=== PATIENT | male | born 1935 | race Caucasian/White ===

== ENCOUNTER 2017-12-07 09:49 | Inpatient (IN) | payer OTHER, MEDICARE ==
[2017-12-07] VITALS (10 sets, daily range): BP systolic 137–178; BP diastolic 82–126; BMI 33.8
[~2017-12-07] VITALS: Ht 190.5 cm; Wt 123.5 kg
[2017-12-07 10:30] LABS: HEMATOCRIT 45.8 % (42.0-54.0); HEMOGLOBIN 15.5 g/dL (13.5-17.5); MCH 31.8 pg (26.0-34.0); MCHC 33.8 g/dL (31.0-37.0); MEAN PLATELET VOLUME 10.5 fL (7.4-10.4); PLATELET COUNT 243 10x3/uL (130-400); RBC 4.87 10x6/uL (4.20-6.10); WBC 20.6 10x3/uL (4.8-10.8)
[2017-12-07 10:42] LABS: ALBUMIN 3.2 g/dL (3.4-5.0); ALKALINE PHOSPHATASE 62 U/L (46-116); ALT (SGPT) 31 U/L (10-68); BILIRUBIN - TOTAL 0.99 mg/dL (0.2-1.3); CALC OSMOLALITY 276 mosm/kg (275-300); CALCIUM 8.6 mg/dL (8.5-10.1); CARBON DIOXIDE 30.2 mmol/L (21.0-32.0); CHLORIDE - SERUM 98 mmol/L (98-107); GLUCOSE 170 mg/dL (74-106); POTASSIUM - SERUM 4.2 mmol/L (3.5-5.1); PROTEIN - SERUM 7.6 g/dL (6.4-8.2); SODIUM 136 mmol/L (136-145); UREA NITROGEN 14 mg/dL (7-18); eGFR NON AFRICAN AMERICAN 76 mL/min (90-120)
[2017-12-07 10:54] LABS: CKMB 0.8 U/L (0.0-3.6); CREATINE KINASE 53 UL (21-232); LYMPHOCYTES 11 % (15-50); MONOCYTES 10 % (2-11); NEUTROPHILS 69 % (40-80); TROPONIN-I < 0.017 ng/mL (0.000-0.060)
[2017-12-07 10:55] LABS: PLATELET ESTIMATE NORMAL; PLATELET MORPHOLOGY GIANT PLTS PRESENT; ROULEAUX OCC
[2017-12-07 10:56] LABS: POLYCHROMASIA 1+
[2017-12-07 17:15] LABS: T4 THYROXIN - FREE 1.14 ng/dL (0.76-1.46); THYROID STIMULATING HORMONE 1.35 uIU/mL (0.36-3.74)
[2017-12-08] VITALS (24 sets, daily range): BP systolic 124–186; BP diastolic 71–143; Ht 190.5 cm; Wt 123.5 kg
[2017-12-08 03:26] LABS: BASOPHILS 0.1 % (0-2); EOSINOPHILS 0.2 % (0-7); HEMATOCRIT 42.6 % (42.0-54.0); HEMOGLOBIN 14.4 g/dL (13.5-17.5); IMMATURE GRANULOCYTES 0.6 % (0-5); LYMPHOCYTES 11.2 % (15-50); MCHC 33.8 g/dL (31.0-37.0); MCV 94.7 fL (80.0-100.0); MEAN PLATELET VOLUME 10.6 fL (7.4-10.4); MONOCYTES 12.1 % (2-11); NEUTROPHILS 75.8 % (40-80); PLATELET COUNT 209 10x3/uL (130-400); RDW 14.1 % (11.5-14.5); WBC 18.6 10x3/uL (4.8-10.8)
[2017-12-08 03:32] LABS: CALC OSMOLALITY 270 mosm/kg (275-300); CALCIUM 7.8 mg/dL (8.5-10.1); CARBON DIOXIDE 31.1 mmol/L (21.0-32.0); CHLORIDE - SERUM 97 mmol/L (98-107); CREATININE - SERUM 0.9 mg/dL (0.6-1.3); GLUCOSE 189 mg/dL (74-106); POTASSIUM - SERUM 3.6 mmol/L (3.5-5.1); SODIUM 133 mmol/L (136-145); UREA NITROGEN 13 mg/dL (7-18); eGFR NON AFRICAN AMERICAN 86 mL/min (90-120)
[2017-12-08 22:09] LABS: APPEARANCE CLEAR (CLEAR); BILIRUBIN NEGATIVE (NEGATIVE); COLOR ORANGE (YELLOW); GLUCOSE 50 mg/dL (NEGATIVE); KETONE SMALL mg/dL (NEGATIVE); NITRITE NEGATIVE (NEGATIVE); PROTEIN TRACE mg/dL (NEGATIVE); UROBILINOGEN NORMAL (NORMAL)
[2017-12-08 22:11] LABS: AMORPHOUS SEDIMENT <1+ /lpf (NONE SEEN); BACTERIA FEW /hpf (NONE SEEN); EPITHELIAL CELLS 0-5 /hpf (0-5)
[2017-12-09] VITALS (11 sets, daily range): BP systolic 104–168; BP diastolic 62–87
[2017-12-09 06:54] LABS: BASOPHILS 0.2 % (0-2); EOSINOPHILS 0.5 % (0-7); HEMOGLOBIN 13.7 g/dL (13.5-17.5); IMMATURE GRANULOCYTES 0.7 % (0-5); LYMPHOCYTES 14.9 % (15-50); MCH 31.1 pg (26.0-34.0); MCHC 33.4 g/dL (31.0-37.0); MEAN PLATELET VOLUME 10.3 fL (7.4-10.4); MONOCYTES 10.8 % (2-11); NEUTROPHILS 72.9 % (40-80); PLATELET COUNT 217 10x3/uL (130-400); RBC 4.41 10x6/uL (4.20-6.10)
[2017-12-09 07:12] LABS: ALBUMIN 2.5 g/dL (3.4-5.0); ALKALINE PHOSPHATASE 58 U/L (46-116); BILIRUBIN - TOTAL 0.73 mg/dL (0.2-1.3); CALC OSMOLALITY 274 mosm/kg (275-300); CALCIUM 8.1 mg/dL (8.5-10.1); CARBON DIOXIDE 29.3 mmol/L (21.0-32.0); CHLORIDE - SERUM 99 mmol/L (98-107); CREATININE - SERUM 0.8 mg/dL (0.6-1.3); GLUCOSE 210 mg/dL (74-106); MAGNESIUM - SERUM 1.7 mg/dL (1.8-2.4); POTASSIUM - SERUM 3.5 mmol/L (3.5-5.1); PROTEIN - SERUM 6.8 g/dL (6.4-8.2); SODIUM 135 mmol/L (136-145); UREA NITROGEN 11 mg/dL (7-18); eGFR NON AFRICAN AMERICAN > 90 mL/min (90-120)
[2017-12-09 07:14] LABS: ALT (SGPT) 17 U/L (10-68)
[2017-12-09] MEDS ORDERED: CYMBALTA30 MG PO (10:32)
[2017-12-09] MEDS ORDERED: FERROUS SULFAT325 MG PO (10:33)
[2017-12-09] MEDS ORDERED: FUROSEMIDE20 MG PO (10:34)
[2017-12-09] MEDS ORDERED: NEURONTIN 400400 MG PO (10:35)
[2017-12-09] MEDS ORDERED: PRINIVIL20 MG PO (10:36)
[2017-12-09] MEDS ORDERED: MELATONIN 3 MG1 TAB PO (10:37)
[2017-12-09] MEDS ORDERED: MIRALAX17 GM PO (10:38)
[2017-12-09] MEDS ORDERED: PROVENTIL HFA6.7 GM INH (10:39)
[2017-12-09] MEDS ORDERED: ZYRTEC10 MG PO (10:40)
[2017-12-09] MEDS ORDERED: ZOCOR40 MG PO (10:40)
[2017-12-09] MEDS ORDERED: METOPROLOL TART25 MG PO (10:42)
[2017-12-09] MEDS ORDERED: ISOSORBIDE MONO60 M1 PO (10:42)
[2017-12-10 04:00] VITALS: BP 134/68
[2017-12-10 07:45] VITALS: BP 133/85
[2017-12-10 11:42] VITALS: BP 148/88
[2017-12-10 15:46] VITALS: BP 169/89
[2017-12-10 21:40] VITALS: BP 152/84
[2017-12-11 06:14] VITALS: BP 162/84
[2017-12-11 06:33] VITALS: BP 177/110
[2017-12-11 07:40] VITALS: BP 165/90
[2017-12-11 10:21] LABS: BASOPHILS 0.3 % (0-2); EOSINOPHILS 1.1 % (0-7); HEMATOCRIT 39.5 % (42.0-54.0); HEMOGLOBIN 13.6 g/dL (13.5-17.5); IMMATURE GRANULOCYTES 0.7 % (0-5); LYMPHOCYTES 12.5 % (15-50); MCH 31.9 pg (26.0-34.0); MCHC 34.4 g/dL (31.0-37.0); MCV 92.5 fL (80.0-100.0); MEAN PLATELET VOLUME 10.3 fL (7.4-10.4); MONOCYTES 9.3 % (2-11); NEUTROPHILS 76.1 % (40-80); PLATELET COUNT 238 10x3/uL (130-400); RBC 4.27 10x6/uL (4.20-6.10); RDW 13.7 % (11.5-14.5)
[2017-12-11 10:29] LABS: CALC OSMOLALITY 276 mosm/kg (275-300); CALCIUM 7.1 mg/dL (8.5-10.1); CARBON DIOXIDE 27.6 mmol/L (21.0-32.0); CHLORIDE - SERUM 101 mmol/L (98-107); CREATININE - SERUM 0.9 mg/dL (0.6-1.3); GLUCOSE 176 mg/dL (74-106); MAGNESIUM - SERUM 2.2 mg/dL (1.8-2.4); POTASSIUM - SERUM 3.4 mmol/L (3.5-5.1); SODIUM 136 mmol/L (136-145); UREA NITROGEN 14 mg/dL (7-18); eGFR NON AFRICAN AMERICAN 86 mL/min (90-120)
[2017-12-11 11:19] VITALS: BP 139/81
[2017-12-11 15:35] VITALS: BP 156/83
[2017-12-11 20:21] VITALS: BP 168/70
[2017-12-12 02:14] VITALS: BP 178/100
[2017-12-12 04:58] LABS: BASOPHILS 0.3 % (0-2); EOSINOPHILS 0.8 % (0-7); HEMATOCRIT 38.9 % (42.0-54.0); HEMOGLOBIN 13.3 g/dL (13.5-17.5); IMMATURE GRANULOCYTES 0.9 % (0-5); LYMPHOCYTES 15.4 % (15-50); MCH 31.3 pg (26.0-34.0); MCHC 34.2 g/dL (31.0-37.0); MCV 91.5 fL (80.0-100.0); MEAN PLATELET VOLUME 10.2 fL (7.4-10.4); MONOCYTES 10.9 % (2-11); NEUTROPHILS 71.7 % (40-80); PLATELET COUNT 244 10x3/uL (130-400); RBC 4.25 10x6/uL (4.20-6.10); WBC 13.2 10x3/uL (4.8-10.8)
[2017-12-12 05:15] VITALS: BP 176/92
[2017-12-12 05:28] LABS: CALC OSMOLALITY 279 mosm/kg (275-300); CARBON DIOXIDE 25.1 mmol/L (21.0-32.0); CHLORIDE - SERUM 102 mmol/L (98-107); GLUCOSE 163 mg/dL (74-106); MAGNESIUM - SERUM 1.8 mg/dL (1.8-2.4); POTASSIUM - SERUM 3.6 mmol/L (3.5-5.1); SODIUM 138 mmol/L (136-145); UREA NITROGEN 12 mg/dL (7-18)
[2017-12-12 05:34] LABS: CREATININE - SERUM 0.6 mg/dL (0.6-1.3); eGFR NON AFRICAN AMERICAN > 90 mL/min (90-120)
[2017-12-12 08:34] VITALS: BP 156/87
[2017-12-12 16:34] VITALS: BP 145/77
[2017-12-13 05:41] LABS: BASOPHILS 0.2 % (0-2); EOSINOPHILS 0.9 % (0-7); HEMATOCRIT 40.4 % (42.0-54.0); HEMOGLOBIN 13.6 g/dL (13.5-17.5); IMMATURE GRANULOCYTES 0.9 % (0-5); LYMPHOCYTES 16.8 % (15-50); MCH 31.1 pg (26.0-34.0); MCHC 33.7 g/dL (31.0-37.0); MCV 92.4 fL (80.0-100.0); MEAN PLATELET VOLUME 10.2 fL (7.4-10.4); NEUTROPHILS 72.2 % (40-80); PLATELET COUNT 236 10x3/uL (130-400); RBC 4.37 10x6/uL (4.20-6.10); WBC 15.2 10x3/uL (4.8-10.8)
[2017-12-13 05:51] LABS: CALC OSMOLALITY 281 mosm/kg (275-300); CALCIUM 7.8 mg/dL (8.5-10.1); CARBON DIOXIDE 26.9 mmol/L (21.0-32.0); CHLORIDE - SERUM 102 mmol/L (98-107); CREATININE - SERUM 0.8 mg/dL (0.6-1.3); GLUCOSE 154 mg/dL (74-106); MAGNESIUM - SERUM 1.9 mg/dL (1.8-2.4); POTASSIUM - SERUM 3.9 mmol/L (3.5-5.1); SODIUM 139 mmol/L (136-145); UREA NITROGEN 14 mg/dL (7-18); eGFR NON AFRICAN AMERICAN > 90 mL/min (90-120)
[2017-12-13 06:02] VITALS: BP 168/87
[2017-12-13 08:47] VITALS: BP 170/96
[2017-12-13 12:38] VITALS: BP 150/84
[2017-12-13 16:27] VITALS: BP 133/76
[2017-12-13 22:07] VITALS: BP 145/78
[2017-12-14 01:57] VITALS: BP 124/51
[2017-12-14 05:30] VITALS: BP 162/97
[2017-12-14 06:33] LABS: BASOPHILS 0.3 % (0-2); EOSINOPHILS 0.8 % (0-7); HEMATOCRIT 40.2 % (42.0-54.0); HEMOGLOBIN 13.4 g/dL (13.5-17.5); LYMPHOCYTES 16.1 % (15-50); MCHC 33.3 g/dL (31.0-37.0); MCV 93.1 fL (80.0-100.0); MEAN PLATELET VOLUME 10.3 fL (7.4-10.4); MONOCYTES 9.7 % (2-11); NEUTROPHILS 72.1 % (40-80); PLATELET COUNT 252 10x3/uL (130-400); RBC 4.32 10x6/uL (4.20-6.10); RDW 14.1 % (11.5-14.5); WBC 15.5 10x3/uL (4.8-10.8)
[2017-12-14 06:52] LABS: CALC OSMOLALITY 273 mosm/kg (275-300); CARBON DIOXIDE 27.8 mmol/L (21.0-32.0); CHLORIDE - SERUM 103 mmol/L (98-107); CREATININE - SERUM 0.6 mg/dL (0.6-1.3); GLUCOSE 123 mg/dL (74-106); POTASSIUM - SERUM 3.6 mmol/L (3.5-5.1); SODIUM 137 mmol/L (136-145); eGFR NON AFRICAN AMERICAN > 90 mL/min (90-120)
[2017-12-14 06:54] LABS: MAGNESIUM - SERUM 1.4 mg/dL (1.8-2.4); UREA NITROGEN 9 mg/dL (7-18)
[2017-12-14 07:54] VITALS: BP 179/93
[2017-12-14 11:29] VITALS: BP 129/71
[2017-12-14 15:34] VITALS: BP 144/89
[2017-12-14] MEDS ORDERED: CARDIZEM 90 MG90 MG PO (16:57)
[2017-12-14] MEDS ORDERED: ACETAMINOPHEN500 M1 PO (16:58)
[2017-12-14 19:44] VITALS: BP 125/83
[2017-12-15 01:25] VITALS: BP 136/94
[2017-12-15 05:33] LABS: BASOPHILS 0.3 % (0-2); HEMATOCRIT 40.6 % (42.0-54.0); HEMOGLOBIN 13.5 g/dL (13.5-17.5); IMMATURE GRANULOCYTES 1.2 % (0-5); LYMPHOCYTES 15.6 % (15-50); MCHC 33.3 g/dL (31.0-37.0); MCV 93.1 fL (80.0-100.0); MEAN PLATELET VOLUME 10.1 fL (7.4-10.4); MONOCYTES 10.1 % (2-11); NEUTROPHILS 71.8 % (40-80); PLATELET COUNT 260 10x3/uL (130-400); RBC 4.36 10x6/uL (4.20-6.10); WBC 15.3 10x3/uL (4.8-10.8)
[2017-12-15 05:58] VITALS: BP 144/98
[2017-12-15 06:01] LABS: CALC OSMOLALITY 266 mosm/kg (275-300); CALCIUM 8.2 mg/dL (8.5-10.1); CARBON DIOXIDE 26.1 mmol/L (21.0-32.0); CHLORIDE - SERUM 100 mmol/L (98-107); CREATININE - SERUM 0.6 mg/dL (0.6-1.3); GLUCOSE 131 mg/dL (74-106); SODIUM 133 mmol/L (136-145); UREA NITROGEN 10 mg/dL (7-18); eGFR NON AFRICAN AMERICAN > 90 mL/min (90-120)
[2017-12-15 06:02] LABS: MAGNESIUM - SERUM 1.9 mg/dL (1.8-2.4); POTASSIUM - SERUM 4.4 mmol/L (3.5-5.1)
[2017-12-15 09:31] VITALS: BP 159/75
== END 2017-12-15 10:15 | disposition home health service (06) | DRG 872 ==
LOC: D.ER 09:49 → D.M2 11:56 → D.ICU 11:56 → D.M2 12-09 19:07
PROVIDERS: Family Medicine; Internal Medicine Nephrology
DX: A41.9 Sepsis, unspecified organism (principal); I31.3 Pericardial effusion (noninflammatory); N39.0 Urinary tract infection, site not specified; I48.91 Unspecified atrial fibrillation; R19.7 Diarrhea, unspecified; I10 Essential (primary) hypertension; E11.9 Type 2 diabetes mellitus without complications; K21.9 Gastro-esophageal reflux disease without esophagitis

== ENCOUNTER → 2018-03-14 18:47 | Outpatient (CLI) | payer OTHER, MEDICARE ==
[2017-12-08 10:01] VITALS: BMI 33.6
[~2018-03-14 18:47] MED LIST: ACETAMINOPHEN500 M1 PO; CARDIZEM 90 MG90 MG PO; CYMBALTA30 MG PO; FERROUS SULFAT325 MG PO; FUROSEMIDE20 MG PO; ISOSORBIDE MONO60 M1 PO; MELATONIN 3 MG1 TAB PO; METOPROLOL TART25 MG PO; MIRALAX17 GM PO; NEURONTIN 400400 MG PO; PRINIVIL20 MG PO; PROVENTIL HFA6.7 GM INH; ZOCOR40 MG PO; ZYRTEC10 MG PO
[2018-03-14 20:09] LABS: BASOPHILS 0.2 % (0-2); EOSINOPHILS 1.1 % (0-7); HEMATOCRIT 44.1 % (42.0-54.0); HEMOGLOBIN 14.6 g/dL (13.5-17.5); IMMATURE GRANULOCYTES 0.8 % (0-5); LYMPHOCYTES 28.7 % (15-50); MCH 30.3 pg (26.0-34.0); MCHC 33.1 g/dL (31.0-37.0); MCV 91.5 fL (80.0-100.0); MEAN PLATELET VOLUME 10.7 fL (7.4-10.4); MONOCYTES 8.4 % (2-11); NEUTROPHILS 60.8 % (40-80); PLATELET COUNT 253 10x3/uL (130-400); RBC 4.82 10x6/uL (4.20-6.10); RDW 16.1 % (11.5-14.5); WBC 12.2 10x3/uL (4.8-10.8)
== END | disposition home or self-care (01) ==
LOC: D.LABREF 18:47
PROVIDERS: Student in an Organized Health Care Education/Training Program
DX: D72.829 Elevated white blood cell count, unspecified (principal)